=== PATIENT | female | born 1955 | race African-American/Black ===

== ENCOUNTER 2019-08-30 19:47 | Emergency (ER) | payer MEDICAID ==
[~2019-08-30] VITALS: Ht 175.3 cm; Wt 122.0 kg
[~2019-08-30 19:47] MED LIST: LORA10TA7 PO; RANI150C12 PO; TOPI100T37 PO
[2019-08-30] MEDS ORDERED: TETANUS, DIPHTHERIA, PERTUSSIS VAC/PF 0.5ML (>7YR OLD) IM ONE (20:30)
[2019-08-30 21:18] VITALS: BP 129/79
== END 2019-08-31 07:15 | disposition home or self-care (01) ==
LOC: ER 08-31 07:14
DX: S00.86XA Insect bite (nonvenomous) of other part of head, initial encounter (principal); W57.XXXA Bitten or stung by nonvenomous insect and other nonvenomous arthropods, initial encounter; Y93.89 Activity, other specified; Y92.89 Other specified places as the place of occurrence of the external cause; Y99.8 Other external cause status; F17.200 Nicotine dependence, unspecified, uncomplicated; I10 Essential (primary) hypertension; G43.909 Migraine, unspecified, not intractable, without status migrainosus; Z88.0 Allergy status to penicillin; Z79.899 Other long term (current) drug therapy
CPT/HCPCS: 90471; 90715; 99283; Z7610

== ENCOUNTER 2019-09-02 21:32 | Emergency (ER) | payer MEDICAID ==
[~2019-09-02] VITALS: Ht 175.3 cm; Wt 86.0 kg
[2019-09-02] MEDS ORDERED: SULFAMETHOXAZOLE/TRIMETHOPRIM 400/80MG TAB PO ONE (23:00)
[2019-09-02] MEDS ORDERED: DIPHENHYDRAMINE 50MG/ML VIAL IM ONE (23:00)
[2019-09-03 00:07] VITALS: BP 161/96
== END 2019-09-03 00:07 | disposition home or self-care (01) ==
LOC: ER 21:32
DX: S80.862A Insect bite (nonvenomous), left lower leg, initial encounter (principal); L03.116 Cellulitis of left lower limb; S00.86XA Insect bite (nonvenomous) of other part of head, initial encounter; L03.211 Cellulitis of face; S40.861A Insect bite (nonvenomous) of right upper arm, initial encounter; L03.113 Cellulitis of right upper limb; W57.XXXA Bitten or stung by nonvenomous insect and other nonvenomous arthropods, initial encounter; Y93.89 Activity, other specified; Y92.89 Other specified places as the place of occurrence of the external cause; R03.0 Elevated blood-pressure reading, without diagnosis of hypertension
CPT/HCPCS: 93971; 96372; 99284; J1200

== ENCOUNTER 2020-07-16 20:03 | Emergency (ER) | payer MEDICAID ==
[~2020-07-16] VITALS: Ht 172.7 cm; Wt 127.0 kg
[2020-07-16 20:07] VITALS: BP 144/82
== END 2020-07-16 23:17 | disposition home or self-care (01) ==
LOC: ER 20:03
DX: S99.911A Unspecified injury of right ankle, initial encounter (principal); S69.91XA Unspecified injury of right wrist, hand and finger(s), initial encounter; J44.9 Chronic obstructive pulmonary disease, unspecified; E78.00 Pure hypercholesterolemia, unspecified; I10 Essential (primary) hypertension; Z88.0 Allergy status to penicillin; Z98.890 Other specified postprocedural states; Z90.710 Acquired absence of both cervix and uterus; Z98.51 Tubal ligation status; V49.9XXA Car occupant (driver) (passenger) injured in unspecified traffic accident, initial encounter; Y93.89 Activity, other specified; Y92.89 Other specified places as the place of occurrence of the external cause; Y99.8 Other external cause status
CPT/HCPCS: 73110; 73600; 99284